=== PATIENT | female | born 1940 | race Caucasian/White ===

== ENCOUNTER → 2017-10-24 | Outpatient (CLI) | payer OTHER ==
[~2017-10-24] MED LIST: ACET-1600 PO; AMIO200T42 PO; ASPI-496 PO; BENZ100C PO; ESTR0.5T PO; MULT-658 PO; OMEP20CA9 PO; OMNIPAQUE 350 MG/ML, 100ML BOTTLE ONE; OXYC-302 PO
== END | disposition home or self-care (01) ==
LOC: CFH 09:44
PROVIDERS: ATTEND Specialist
DX: I72.8 Aneurysm of other specified arteries (principal); J90 Pleural effusion, not elsewhere classified; J43.9 Emphysema, unspecified; J84.10 Pulmonary fibrosis, unspecified; C34.11 Malignant neoplasm of upper lobe, right bronchus or lung; C77.1 Secondary and unspecified malignant neoplasm of intrathoracic lymph nodes; G89.18 Other acute postprocedural pain
CPT/HCPCS: 71260; 74160; 82565; Q9967

== ENCOUNTER → 2017-11-02 | Outpatient (CLI) | payer OTHER ==
[~2017-11-02] MED LIST changes: +ALBU1.25 NEB; +BUDE10.2 INH; +LEVO50TA5 PO; -OMNIPAQUE 350 MG/ML, 100ML BOTTLE ONE; +PANT40TA5 PO
== END | disposition home or self-care (01) ==
LOC: STAR 13:15
PROVIDERS: ATTEND Internal Medicine Gastroenterology
DX: R13.19 Other dysphagia (principal)
CPT/HCPCS: 93005

== ENCOUNTER 2017-11-08 07:40 | Day surgery (SDC) | payer OTHER ==
[~2017-11-08] VITALS: Ht 152.4 cm; Wt 42.0 kg
[2017-11-08 08:11] VITALS: BP 160/92
[2017-11-08] MEDS: LACTATED RINGERS 1,000 ML IV SCH ×2 (08:20→08:28)
[2017-11-08] MEDS ORDERED: KETAMINE 10 MG/ML, 20ML ONE (08:52)
[2017-11-08] MEDS ORDERED: FENTANYL PF 100 MCG/2ML IV PRN (10:00)
[2017-11-08] MEDS ORDERED: ALBUTEROL SULFATE 2.5 MG/3 ML NPPB PRN (10:00)
[2017-11-08] MEDS ORDERED: hydrALAzine 20 MG/ML, 1ML IV PRN (10:00)
[2017-11-08] MEDS ORDERED: morphine SULFATE 10 MG/ML, 1ML IV PRN (10:00)
[2017-11-08] MEDS ORDERED: ONDANSETRON 2MG/ML, 2ML IVPush PRN (10:00)
[2017-11-08] MEDS ORDERED: MIDAZOLAM 1 MG/ML, 2ML IV PRN (10:00)
[2017-11-08] MEDS ORDERED: PROMETHAZINE 12.5 MG SUPP PR PRN (10:00)
[2017-11-08] MEDS ORDERED: LABETALOL 5MG/ML, 20ML IV PRN (10:00)
[2017-11-08] MEDS ORDERED: OXYcodone 5 MG/5 ML ORAL.SOL UDC PO PRN (10:00)
[2017-11-08] MEDS ORDERED: MEPERIDINE/PF 25MG/0.5ML IVPush PRN (10:00)
[2017-11-08] MEDS ORDERED: PROPOFOL 10 MG/ML, 20ML ONE (11:06)
== END 2017-11-08 12:20 ==
LOC: OUT 07:40
PROVIDERS: ATTEND Internal Medicine Gastroenterology
DX: R13.14 Dysphagia, pharyngoesophageal phase (principal); J44.9 Chronic obstructive pulmonary disease, unspecified; K21.9 Gastro-esophageal reflux disease without esophagitis; E03.9 Hypothyroidism, unspecified; Z86.010 Personal history of colon polyps; Z98.890 Other specified postprocedural states; Z85.42 Personal history of malignant neoplasm of other parts of uterus; Z85.118 Personal history of other malignant neoplasm of bronchus and lung; Z85.43 Personal history of malignant neoplasm of ovary; Z87.891 Personal history of nicotine dependence
CPT/HCPCS: 43248; J2704; J7120

== ENCOUNTER 2017-11-14 10:17 | Day surgery (SDC) | payer OTHER ==
[~2017-11-14] VITALS: Ht 152.4 cm; Wt 42.6 kg
[2017-11-14] MEDS ORDERED: LACTATED RINGERS 1,000 ML IV SCH (11:04)
[2017-11-14 11:08] VITALS: BP 147/86
[2017-11-14] MEDS ORDERED: PROPOFOL 10 MG/ML, 20ML ONE ×2 (12:21→12:35)
[2017-11-14] MEDS ORDERED: DEXAMETHASONE 4 MG/ML, 1ML ONE (12:21)
[2017-11-14] MEDS ORDERED: ONDANSETRON 2MG/ML, 2ML ONE (12:21)
[2017-11-14] MEDS ORDERED: SUCCINYLCHOLINE 20 MG/ML, 10ML ONE ×2 (12:21)
[2017-11-14] MEDS ORDERED: ROCURONIUM 10MG/ML,5ML ONE (12:22)
[2017-11-14] MEDS ORDERED: ROCURONIUM 10 MG/ML,10ML ONE (12:35)
[2017-11-14] MEDS ORDERED: MIDAZOLAM 1 MG/ML, 2ML IV PRN (13:30)
[2017-11-14] MEDS ORDERED: PROMETHAZINE 12.5 MG SUPP PR PRN (13:30)
[2017-11-14] MEDS ORDERED: PROMETHAZINE 25 MG/ML, 1ML IV PRN (13:30)
[2017-11-14] MEDS ORDERED: LORazepam 2 MG/ML, 1ML IVPush PRN (13:30)
[2017-11-14] MEDS ORDERED: ONDANSETRON 2MG/ML, 2ML IVPush PRN (13:30)
[2017-11-14] MEDS ORDERED: ALBUTEROL/IPRATROPIUM 2.5MG/0.5MG, 3 ML NPPB PRN (13:30)
[2017-11-14] MEDS ORDERED: hydrALAzine 20 MG/ML, 1ML IV PRN (13:30)
[2017-11-14] MEDS ORDERED: METOPROLOL 1 MG/ML, 5ML IV PRN (13:30)
[2017-11-14] MEDS ORDERED: ACETAMINOPHEN 325 MG TABLET PO PRN (13:30)
[2017-11-14] MEDS ORDERED: EPHEDRINE 50 MG/ML, 1ML IVPush PRN (13:30)
[2017-11-14] MEDS ORDERED: FENTANYL PF 100 MCG/2ML ONE (14:13)
[2017-11-14] MEDS ORDERED: ALBUTEROL/IPRATROPIUM 2.5MG/0.5MG, 3 ML ONE (14:36)
== END 2017-11-14 16:00 | disposition home or self-care (01) ==
LOC: OUT 10:17
PROVIDERS: ATTEND Internal Medicine
DX: C34.12 Malignant neoplasm of upper lobe, left bronchus or lung (principal); Z90.2 Acquired absence of lung [part of]; K21.9 Gastro-esophageal reflux disease without esophagitis; Z79.899 Other long term (current) drug therapy; E03.8 Other specified hypothyroidism; Z98.890 Other specified postprocedural states; Z86.010 Personal history of colon polyps; Z85.42 Personal history of malignant neoplasm of other parts of uterus; Z87.891 Personal history of nicotine dependence; Z85.43 Personal history of malignant neoplasm of ovary; J43.9 Emphysema, unspecified
CPT/HCPCS: 31628; 31629; 71045; 76001; 88172; 88173; 88305; 88341; 88342; 88360; 88377; 94640; J0330; J1100; J2405; J2704; J7120; J7620; G0461

== ENCOUNTER 2018-02-07 18:37 | Inpatient (IN) | payer OTHER ==
[~2018-02-07] VITALS: Ht 152.4 cm; Wt 39.8 kg
[2018-02-07] MEDS ORDERED: ALBUTEROL/IPRATROPIUM 2.5MG/0.5MG, 3 ML NPPB ONE (19:00)
[2018-02-07] MEDS ORDERED: ALBUTEROL/IPRATROPIUM 2.5MG/0.5MG, 3 ML ONE (19:12)
[2018-02-07 19:14] LABS: BASOPHILS # (AUTO) 0.01 x10^3/uL (0-0.1); BASOPHILS % (AUTO) 0 % (0-1); EOSINOPHILS # (AUTO) 0.05 x10^3/uL (0-0.4); EOSINOPHILS % (AUTO) 1 % (1-7); LYMPHOCYTES # (AUTO) 0.45 x10^3/uL (1-3.4); LYMPHOCYTES % (AUTO) 5 % (22-44); MD NO; MEAN CORPUSCULAR HEMOGLOBIN 31.6 pg (27.0-34.8); MEAN CORPUSCULAR HGB CONC 34.3 g/dL (32.4-35.8); MEAN CORPUSCULAR VOLUME 92.3 fL (80-100); MEAN PLATELET VOLUME 6.6 fL (7.4-10.4); MONOCYTES # (AUTO) 0.52 x10^3/uL (0.2-0.8); MONOCYTES % (AUTO) 5 % (2-9); NEUTROPHILS # (AUTO) 8.57 x10^3/uL (1.8-6.8); NEUTROPHILS % (AUTO) 89 % (42-75); PLATELET COUNT 404 x10^3/uL (130-400); RED BLOOD COUNT 4.44 x10^6/uL (3.82-5.3); RED CELL DISTRIBUTION WIDTH 15.1 % (9.6-15.2)
[2018-02-07 19:23] LABS: ALBUMIN 3.4 g/dL (3.4-5.0); ANION GAP 8 mmol/L (5-15); CALCIUM 9.4 mg/dL (8.5-10.1); CHLORIDE 102 mmol/L (98-107); CREATININE 0.74 mg/dL (0.55-1.02)
[2018-02-07 19:27] LABS: TROPONIN I < 0.015 ng/mL (0.000-0.045)
[2018-02-07] MEDS ORDERED: OMNIPAQUE 350 MG/ML, 100ML BOTTLE ONE (21:41)
[2018-02-07] MEDS ORDERED: CEFTRIAXONE PMX 1GM/50ML 50 ML ONE (22:57)
[2018-02-07] MEDS ORDERED: AZITHROMYCIN 500 MG in SODIUM CHLORIDE 0.9% 250 ML IV ONE (23:00)
[2018-02-07] MEDS ORDERED: CEFTRIAXONE PMX 1GM/50ML 50 ML IVPB ONE (23:00)
[2018-02-07] MEDS ORDERED: methylPREDNISolone SOD SUCC 125 MG/2 ML IVPush ONE (23:30)
[2018-02-07] MEDS ORDERED: POLYETHYLENE GLYCOL 17 GM PACKET PO PRN (23:30)
[2018-02-07] MEDS ORDERED: ONDANSETRON 2MG/ML, 2ML IVPush PRN (23:30)
[2018-02-07] MEDS ORDERED: BISACODYL 10 MG SUPP PR PRN (23:30)
[2018-02-07] MEDS: ALBUTEROL/IPRATROPIUM 2.5MG/0.5MG, 3 ML NPPB PRN (23:45)
[2018-02-08] MEDS: ACETAMINOPHEN 325 MG TABLET PO PRN ×3 (00:05→21:16)
[2018-02-08] MEDS: MELATONIN 5 MG TABLET PO SCH ×2 (00:05→21:17)
[2018-02-08] MEDS: ESTRADIOL 0.5 MG TABLET PO SCH ×2 (00:05→21:16)
[2018-02-08] MEDS: AZITHROMYCIN 500 MG in SODIUM CHLORIDE 0.9% 250 ML IV SCH (00:07)
[2018-02-08] MEDS: SODIUM CHLORIDE FLUSH 10ML SYR IVF SCH ×3 (00:18→21:17)
[2018-02-08] MEDS: HEPARIN 5,000 UNITS/ML, 1ML SQ SCH ×3 (00:20→16:16)
[2018-02-08 00:23] VITALS: BP 134/74
[2018-02-08 02:00] VITALS: BP 116/65
[2018-02-08 04:38] LABS: MEAN CORPUSCULAR HEMOGLOBIN 31.2 pg (27.0-34.8); MEAN CORPUSCULAR HGB CONC 33.6 g/dL (32.4-35.8); MEAN CORPUSCULAR VOLUME 92.7 fL (80-100); MEAN PLATELET VOLUME 7.1 fL (7.4-10.4); PLATELET COUNT 331 x10^3/uL (130-400); RED BLOOD COUNT 3.91 x10^6/uL (3.82-5.3); RED CELL DISTRIBUTION WIDTH 15.2 % (9.6-15.2)
[2018-02-08 04:50] LABS: ALBUMIN 2.6 g/dL (3.4-5.0); ANION GAP 4 mmol/L (5-15); CALCIUM 8.3 mg/dL (8.5-10.1); CHLORIDE 106 mmol/L (98-107)
[2018-02-08 04:54] LABS: ALANINE AMINOTRANSFERASE 18 U/L (12-78); ALKALINE PHOSPHATASE 72 U/L (45-117); BILIRUBIN,TOTAL 0.5 mg/dL (0.2-1.0); CREATININE 0.57 mg/dL (0.55-1.02); TOTAL PROTEIN 6.7 g/dL (6.4-8.2)
[2018-02-08 04:56] LABS: BASOPHILS # (AUTO) 0.01 x10^3/uL (0-0.1); BASOPHILS % (AUTO) 0 % (0-1); EOSINOPHILS # (AUTO) 0.01 x10^3/uL (0-0.4); EOSINOPHILS % (AUTO) 0 % (1-7); LYMPHOCYTES # (AUTO) 0.33 x10^3/uL (1-3.4); LYMPHOCYTES % (AUTO) 4 % (22-44); MD SCAN; MONOCYTES # (AUTO) 0.08 x10^3/uL (0.2-0.8); MONOCYTES % (AUTO) 1 % (2-9); NEUTROPHILS # (AUTO) 8.96 x10^3/uL (1.8-6.8); NEUTROPHILS % (AUTO) 95 % (42-75)
[2018-02-08] MEDS: LEVOTHYROXINE 50 MCG TABLET PO SCH (05:39)
[2018-02-08 06:40] VITALS: BP 115/66
[2018-02-08] MEDS: ALBUTEROL/IPRATROPIUM 2.5MG/0.5MG, 3 ML NPPB SCH ×4 (07:00→20:00)
[2018-02-08] MEDS: PANTOPROZOLE 40MG TABLET PO SCH (08:12)
[2018-02-08] MEDS: methylPREDNISolone SOD SUCC 125 MG/2 ML IVPush SCH ×2 (08:18→16:15)
[2018-02-08] MEDS: SENNA/DOCUSATE TABLET PO SCH (08:18)
[2018-02-08] MEDS: FLUTICASONE/VILANTEROL 200-25MCG/INH INH SCH (09:00)
[2018-02-08 12:40] VITALS: BP 108/56
[2018-02-08 19:27] VITALS: BP 110/63
[2018-02-08] MEDS ORDERED: CEFTRIAXONE PMX 1GM/50ML 50 ML IV SCH (23:30)
[2018-02-08] MEDS: CEFTRIAXONE 1,000 MG in SODIUM CHLORIDE 0.9% 50 ML IV SCH (23:37)
[2018-02-09] MEDS: AZITHROMYCIN 500 MG in SODIUM CHLORIDE 0.9% 250 ML IV SCH (00:17)
[2018-02-09] MEDS: methylPREDNISolone SOD SUCC 125 MG/2 ML IVPush SCH ×3 (00:17→16:41)
[2018-02-09] MEDS: HEPARIN 5,000 UNITS/ML, 1ML SQ SCH ×3 (00:21→16:41)
[2018-02-09 02:23] VITALS: BP 119/60
[2018-02-09] MEDS: LEVOTHYROXINE 50 MCG TABLET PO SCH (04:23)
[2018-02-09] MEDS: ACETAMINOPHEN 325 MG TABLET PO PRN ×2 (04:24→21:50)
[2018-02-09 04:34] LABS: MEAN CORPUSCULAR HEMOGLOBIN 31.5 pg (27.0-34.8); MEAN CORPUSCULAR HGB CONC 34.1 g/dL (32.4-35.8); MEAN CORPUSCULAR VOLUME 92.5 fL (80-100); MEAN PLATELET VOLUME 6.9 fL (7.4-10.4); PLATELET COUNT 303 x10^3/uL (130-400); RED BLOOD COUNT 3.53 x10^6/uL (3.82-5.3)
[2018-02-09 04:49] LABS: FREE T4 (FREE THYROXINE) 1.14 ng/dL (0.76-1.46); THYROID STIMULATING HORMONE 0.395 mIU/L (0.358-3.740)
[2018-02-09 04:58] LABS: BASOPHILS % (AUTO) 0 % (0-1); EOSINOPHILS % (AUTO) 0 % (1-7); LYMPHOCYTES % (AUTO) 3 % (22-44); MD SCAN; MONOCYTES # (AUTO) 0.16 x10^3/uL (0.2-0.8); MONOCYTES % (AUTO) 3 % (2-9); NEUTROPHILS # (AUTO) 6.29 x10^3/uL (1.8-6.8); NEUTROPHILS % (AUTO) 95 % (42-75)
[2018-02-09 06:30] VITALS: BP 125/67
[2018-02-09] MEDS: ALBUTEROL/IPRATROPIUM 2.5MG/0.5MG, 3 ML NPPB SCH (06:41)
[2018-02-09] MEDS: PANTOPROZOLE 40MG TABLET PO SCH (07:56)
[2018-02-09] MEDS: SODIUM CHLORIDE FLUSH 10ML SYR IVF SCH ×2 (07:58→21:50)
[2018-02-09] MEDS: FLUTICASONE/VILANTEROL 200-25MCG/INH INH SCH (09:00)
[2018-02-09] MEDS: CETIRIZINE 10 MG TABLET PO SCH (09:14)
[2018-02-09] MEDS: SENNA/DOCUSATE TABLET PO SCH (09:14)
[2018-02-09] MEDS: GUAIFENESIN ER 600 MG TABLET PO SCH ×2 (10:17→21:50)
[2018-02-09] MEDS ORDERED: GUAIFENESIN/DM 100-10MG, 5ML UDC PO PRN (10:30)
[2018-02-09] MEDS: DIPHENHYDRAMINE 12.5MG/5ML, 10ML UDC PO PRN ×2 (10:51→20:11)
[2018-02-09 13:20] VITALS: BP 112/63
[2018-02-09 18:43] VITALS: BP 127/78
[2018-02-09] MEDS: ALBUTEROL/IPRATROPIUM 2.5MG/0.5MG, 3 ML NPPB PRN (18:46)
[2018-02-09] MEDS: MELATONIN 5 MG TABLET PO SCH (21:50)
[2018-02-09] MEDS: ESTRADIOL 0.5 MG TABLET PO SCH (21:50)
[2018-02-09] MEDS: CEFTRIAXONE 1,000 MG in SODIUM CHLORIDE 0.9% 50 ML IV SCH (23:06)
[2018-02-10] MEDS: methylPREDNISolone SOD SUCC 125 MG/2 ML IVPush SCH ×3 (00:11→16:23)
[2018-02-10] MEDS: AZITHROMYCIN 500 MG in SODIUM CHLORIDE 0.9% 250 ML IV SCH (00:11)
[2018-02-10] MEDS: HEPARIN 5,000 UNITS/ML, 1ML SQ SCH ×3 (00:14→16:23)
[2018-02-10 01:05] VITALS: BP 123/60
[2018-02-10 06:25] VITALS: BP 132/75
[2018-02-10] MEDS: LEVOTHYROXINE 50 MCG TABLET PO SCH (06:34)
[2018-02-10] MEDS: GUAIFENESIN ER 600 MG TABLET PO SCH ×2 (08:54→20:45)
[2018-02-10] MEDS: PANTOPROZOLE 40MG TABLET PO SCH (08:54)
[2018-02-10] MEDS: SODIUM CHLORIDE FLUSH 10ML SYR IVF SCH ×2 (08:55→20:46)
[2018-02-10] MEDS: FLUTICASONE/VILANTEROL 200-25MCG/INH INH SCH (08:55)
[2018-02-10] MEDS: SENNA/DOCUSATE TABLET PO SCH (08:56)
[2018-02-10] MEDS: CETIRIZINE 10 MG TABLET PO SCH (08:56)
[2018-02-10] MEDS: ALBUTEROL/IPRATROPIUM 2.5MG/0.5MG, 3 ML NPPB PRN (10:00)
[2018-02-10] MEDS ORDERED: ALBUTEROL/IPRATROPIUM 2.5MG/0.5MG, 3 ML NPPB PRN (11:00)
[2018-02-10 12:37] VITALS: BP 115/66
[2018-02-10] MEDS: DIPHENHYDRAMINE 12.5MG/5ML, 10ML UDC PO PRN (13:46)
[2018-02-10 19:38] VITALS: BP 153/88
[2018-02-10] MEDS: MELATONIN 5 MG TABLET PO SCH (20:45)
[2018-02-10] MEDS: ESTRADIOL 0.5 MG TABLET PO SCH (20:45)
[2018-02-10] MEDS: CEFTRIAXONE 1,000 MG in SODIUM CHLORIDE 0.9% 50 ML IV SCH (23:30)
[2018-02-11] MEDS: methylPREDNISolone SOD SUCC 125 MG/2 ML IVPush SCH ×3 (00:28→16:32)
[2018-02-11] MEDS: AZITHROMYCIN 500 MG in SODIUM CHLORIDE 0.9% 250 ML IV SCH (00:28)
[2018-02-11] MEDS: HEPARIN 5,000 UNITS/ML, 1ML SQ SCH ×3 (00:29→16:31)
[2018-02-11 03:00] VITALS: BP 145/76
[2018-02-11 04:19] LABS: BASOPHILS # (AUTO) 0.02 x10^3/uL (0-0.1); BASOPHILS % (AUTO) 0 % (0-1); EOSINOPHILS % (AUTO) 0 % (1-7); LYMPHOCYTES # (AUTO) 0.19 x10^3/uL (1-3.4); LYMPHOCYTES % (AUTO) 3 % (22-44); MD NO; MEAN CORPUSCULAR HEMOGLOBIN 31.4 pg (27.0-34.8); MEAN CORPUSCULAR HGB CONC 33.7 g/dL (32.4-35.8); MEAN CORPUSCULAR VOLUME 93.1 fL (80-100); MEAN PLATELET VOLUME 6.8 fL (7.4-10.4); MONOCYTES # (AUTO) 0.27 x10^3/uL (0.2-0.8); MONOCYTES % (AUTO) 4 % (2-9); NEUTROPHILS # (AUTO) 6.36 x10^3/uL (1.8-6.8); NEUTROPHILS % (AUTO) 93 % (42-75); PLATELET COUNT 344 x10^3/uL (130-400); RED BLOOD COUNT 3.81 x10^6/uL (3.82-5.3); RED CELL DISTRIBUTION WIDTH 14.8 % (9.6-15.2)
[2018-02-11 04:32] LABS: ALBUMIN 2.9 g/dL (3.4-5.0); ANION GAP 5 mmol/L (5-15); CALCIUM 8.9 mg/dL (8.5-10.1); CHLORIDE 105 mmol/L (98-107)
[2018-02-11 04:36] LABS: ALANINE AMINOTRANSFERASE 21 U/L (12-78); ALKALINE PHOSPHATASE 60 U/L (45-117); BILIRUBIN,TOTAL 0.2 mg/dL (0.2-1.0); CREATININE 0.45 mg/dL (0.55-1.02); TOTAL PROTEIN 6.6 g/dL (6.4-8.2)
[2018-02-11] MEDS: ACETAMINOPHEN 325 MG TABLET PO PRN ×2 (06:00→23:52)
[2018-02-11] MEDS: LEVOTHYROXINE 50 MCG TABLET PO SCH (06:00)
[2018-02-11 06:32] VITALS: BP 152/80
[2018-02-11] MEDS: GUAIFENESIN ER 600 MG TABLET PO SCH ×2 (08:05→20:16)
[2018-02-11] MEDS: FLUTICASONE/VILANTEROL 200-25MCG/INH INH SCH (08:06)
[2018-02-11] MEDS: SODIUM CHLORIDE FLUSH 10ML SYR IVF SCH ×2 (08:06→20:17)
[2018-02-11] MEDS: PANTOPROZOLE 40MG TABLET PO SCH (08:06)
[2018-02-11] MEDS: CETIRIZINE 10 MG TABLET PO SCH (08:06)
[2018-02-11] MEDS: SENNA/DOCUSATE TABLET PO SCH (08:07)
[2018-02-11 12:50] VITALS: BP 153/84
[2018-02-11 19:34] VITALS: BP 158/88
[2018-02-11] MEDS: ESTRADIOL 0.5 MG TABLET PO SCH (20:16)
[2018-02-11] MEDS: MELATONIN 5 MG TABLET PO SCH (20:17)
[2018-02-11] MEDS: CEFTRIAXONE 1,000 MG in SODIUM CHLORIDE 0.9% 50 ML IV SCH (23:04)
[2018-02-12] MEDS: HEPARIN 5,000 UNITS/ML, 1ML SQ SCH ×2 (00:29→07:29)
[2018-02-12] MEDS: methylPREDNISolone SOD SUCC 125 MG/2 ML IVPush SCH ×2 (00:29→07:29)
[2018-02-12 01:15] VITALS: BP 156/73
[2018-02-12] MEDS: AZITHROMYCIN 500 MG in SODIUM CHLORIDE 0.9% 250 ML IV SCH (03:18)
[2018-02-12] MEDS: ACETAMINOPHEN 325 MG TABLET PO PRN ×2 (05:36→15:23)
[2018-02-12] MEDS: LEVOTHYROXINE 50 MCG TABLET PO SCH (05:36)
[2018-02-12 07:24] VITALS: BP 149/78
[2018-02-12] MEDS: CETIRIZINE 10 MG TABLET PO SCH (07:29)
[2018-02-12] MEDS: GUAIFENESIN ER 600 MG TABLET PO SCH (07:29)
[2018-02-12] MEDS: SENNA/DOCUSATE TABLET PO SCH (07:29)
[2018-02-12] MEDS: PANTOPROZOLE 40MG TABLET PO SCH (07:29)
[2018-02-12] MEDS: FLUTICASONE/VILANTEROL 200-25MCG/INH INH SCH (09:00)
[2018-02-12] MEDS: SODIUM CHLORIDE FLUSH 10ML SYR IVF SCH (09:00)
[2018-02-12 13:13] VITALS: BP 160/97
[2018-02-12] MEDS ORDERED: AZIT500T PO (13:36)
[2018-02-12] MEDS ORDERED: PRED10TA PO (13:36)
[2018-02-12] MEDS ORDERED: MELA5TAB19 PO (13:36)
[2018-02-12] MEDS ORDERED: GUAI1TBM11 PO (13:36)
[2018-02-12] MEDS ORDERED: IPRA12.9 INH (13:36)
[2018-02-12] MEDS ORDERED: CEFD300C37 PO (13:36)
[2018-02-12] MEDS ORDERED: POLY17PO5 PO (13:36)
[2018-02-12] MEDS ORDERED: LACT1CAP24 PO (13:36)
== END 2018-02-12 15:43 | disposition hospice, home (50) | DRG 189 ==
LOC: ED 22:12 → EDIP 22:49 → 3NW 23:25
PROVIDERS: ADMIT Internal Medicine; ATTEND Internal Medicine
DX: J96.21 Acute and chronic respiratory failure with hypoxia (principal); J44.1 Chronic obstructive pulmonary disease with (acute) exacerbation; I31.3 Pericardial effusion (noninflammatory); J90 Pleural effusion, not elsewhere classified; C34.12 Malignant neoplasm of upper lobe, left bronchus or lung; C34.2 Malignant neoplasm of middle lobe, bronchus or lung; C34.31 Malignant neoplasm of lower lobe, right bronchus or lung; E03.9 Hypothyroidism, unspecified; F41.9 Anxiety disorder, unspecified; H40.9 Unspecified glaucoma; J30.2 Other seasonal allergic rhinitis; K21.0 Gastro-esophageal reflux disease with esophagitis; R13.10 Dysphagia, unspecified; Z66 Do not resuscitate; T66.XXXA Radiation sickness, unspecified, initial encounter; Z80.0 Family history of malignant neoplasm of digestive organs; Z83.3 Family history of diabetes mellitus; Z87.891 Personal history of nicotine dependence; Z85.118 Personal history of other malignant neoplasm of bronchus and lung; Z85.41 Personal history of malignant neoplasm of cervix uteri; Z90.2 Acquired absence of lung [part of]; Z90.710 Acquired absence of both cervix and uterus; Z92.3 Personal history of irradiation; Z92.21 Personal history of antineoplastic chemotherapy; Z99.81 Dependence on supplemental oxygen
CPT/HCPCS: 36415; 71045; 71275; 74230; 80048; 80053; 82040; 83605; 83735; 84100; 84439; 84443; 84484; 85025; 87040; 87070; 87205; 93005; 94640; 96374; J0456; J0696; J1644; J7620; Q9967; J2930; J7050